=== PATIENT | female | born 1980 | race Caucasian/White ===

== ENCOUNTER 2018-05-04 09:30 | Emergency (ER) | payer OTHER ==
[2018-05-04 10:10] LABS: Bilirubin Negative (Negative); Blood, Urine Trace (Negative); Clarity Clear (Clear); Glucose, Urine (Dipstick) 500 mg/dL (Negative); Leukocyte Negative (Negative); Nitrite Negative (Negative); Protein, Urine (Dipstick) 100 mg/dL (Neg-Trace); Urobilinogen 0.2 mg/dL (0.2-1.0)
[2018-05-04 10:12] LABS: Pregnancy Test - Urine (BHCG) Negative (Negative); Pregu Control Background? CLEAR/WHITE (CLR/WHITE); Pregu Control Bar Appear? YES (CONTROL BAR)
[2018-05-04 10:21] LABS: WBC/HPF None Seen HPF (0-3)
[2018-05-04 10:22] LABS: Bacteria/HPF Rare-Few HPF (None Seen)
[2018-05-04] MEDS ORDERED: Morphine 4 MG/ML VIAL ONE (10:31)
[2018-05-04] MEDS ORDERED: Ondansetron HCl/PF 4 MG/2 ML Vial ONE (10:32)
[2018-05-04 10:36] LABS: #Basophils 0.1 thou/uL (0.0-0.2); #Eosinphils 0.1 thou/uL (0.0-0.7); #Lymphocytes 1.9 thou/uL (1.20-3.40); #Monocytes 0.6 thou/uL (0.11-0.59); #Neutrophils 3.5 thou/uL (1.40-6.50); %Basophils 1.8 % (0.0-1.0); %Eosinophils 2.1 % (0.0-10.0); %Lymphocytes 30.1 % (21.0-51.0); %Monocytes 9.1 % (0.0-10.0); %Neutrophils 56.9 % (42.0-75.0); Hemoglobin 17.7 g/dL (12.0-16.0); Mean Corpuscular HGB CONC 34.9 g/dL (32.0-36.0); Mean Corpuscular Hemoglobin 30.3 pg (27.0-31.0); Mean Corpuscular Volume 86.6 fL (78.0-98.0); Mean Platelet Volume 7.9 fL (7.4-10.4); Platelet Count 149 thou/uL (130-400); RBC Distribution Width 10.6 % (11.5-14.5); Red Blood Cell (RBC) Count 5.85 mill/uL (4.20-5.40); White Blood Cell (WBC) Count 6.2 thou/uL (4.8-10.8)
[2018-05-04 10:48] LABS: ALT (SGPT) 54 U/L (8-55); AST (SGOT) 34 U/L (5-34); Albumin 4.3 g/dL (3.5-5.0); Alkaline Phosphatase 93 U/L (40-150); Anion Gap 15 mmol/L (10-20); BUN (Urea Nitrogen) 9 mg/dL (7.0-18.7); Bilirubin, Total 0.4 mg/dL (0.2-1.2); Calc. Creatinine Clearance 0 mL/min (70-130); Calcium 9.6 mg/dL (7.8-10.44); Carbon Dioxide 21 mmol/L (22-29); Chloride 104 mmol/L (98-107); Estimated GFR-MDRD Greater than 90; Globulin 3.1 g/dL (2.4-3.5); Glucose 261 mg/dL (70-105); Lipase 30 U/L (8-78); Potassium 4.3 mmol/L (3.5-5.1); Protein, Total 7.4 g/dL (6.0-8.3); Sodium 136 mmol/L (136-145)
[2018-05-04] MEDS ORDERED: Ketorolac Tromethamine 30 MG/ML VIAL ONE (11:43)
--- NOTE | 2018-05-04 12:58 | CT ---
CT OF THE ABDOMEN AND PELVIS WITH CONTRAST: COMPARISON: None. HISTORY: Right lower quadrant abdominal pain and low back pain for 1 week. TECHNIQUE: Multiple contiguous axial images were obtained in a CT of the abdomen and pelvis with contrast. Prudence nal reformats were performed. FINDINGS: Diffuse fatty infiltration of the liver is seen. The gallbladder, kidneys, adrenal glands, spleen, a nd pancreas are unremarkable. No free air, free fluid, or stranding changes are seen in the abdomen or pelvis. The reproductive organs are unremarkable. The large and small bowel are unremarkable. The appendix is normal. There is a small amount of stool throughout the colon. No abdominal or pelvic lymphadenopathy are seen. Mild degenerative changes are seen in the spine. T he visualized inferior thorax and abdominal wall soft tissues are unremarkable. IMPRESSION: 1. No evidence of acute intraabdominal/pelvic abnormality. 2. Fatty liver. POS: [facility]
[2018-05-04] MEDS ORDERED: HYDROcodone/Acetaminophen 5/325 mg Tablet ONE (13:23)
--- NOTE | 2018-05-04 14:24 | ULT ---
PELVIC ULTRASOUND: COMPARISON: CT abdomen/pelvis 05/04/18. HISTORY: The patient has right lower quadrant abdominal pain and low back pain. The patient had her left ovar y removed 20 years ago. TECHNIQUE: Multiplanar, ibrahim scale, and color Doppler images were obtained in a transabdominal and transvaginal pelvic ultrasound. Spectral analysis of the Doppler waveform of the right ovary was performed. FINDINGS: The uterus is normal in size and appearance without focal abnormality. The endometrial stripe is nor mal in thickness measuring 8 mm. The left ovary was not visualized. No free fluid was seen in the pelvis. The right ovary is normal in size and demonstrates normal internal flow. A follicle is seen in the right ovary measuring 1.8 c m in size. IMPRESSION: No significant pelvic abnormality. POS: [facility]
[2018-05-05 22:57] LABS: Chlamydia by PCR Not Detected (NotDetected); GC by PCR Not Detected (NotDetected)
== END 2018-05-04 13:34 | disposition home or self-care (01) ==
LOC: SCSER 09:30
DX: N76.0 Acute vaginitis (principal); N94.6 Dysmenorrhea, unspecified; N94.10 Unspecified dyspareunia; E11.9 Type 2 diabetes mellitus without complications; I10 Essential (primary) hypertension; Z79.899 Other long term (current) drug therapy; Z79.84 Long term (current) use of oral hypoglycemic drugs
CPT/HCPCS: 74177; 76856; 80053; 81003; 81015; 81025; 83690; 85025; 87480; 87491; 87510; 87591; 87660; 96374; 96375; J1885; J2270; J2405

== ENCOUNTER 2018-06-30 16:30 | Inpatient (IN) | payer OTHER ==
[2018-06-30 17:29] VITALS: BMI 31.1
--- NOTE | 2018-06-30 18:08 | HP ---
HISTORY OF PRESENT ILLNESS: Ms. Samuel is a 38-year-old white female who has had previous 1 pregnanc y with 1 vaginal delivery that has been having issues with chronic pelvic pain. She also has very se harjinder dysmenorrhea that is disabling despite taking nonsteroidal medication. She states her cycles ar e not real heavy, but it has extreme pain related to them. She is desiring definitive surgical thera py for this. PAST MEDICAL HISTORY: Significant for type 2 diabetes, chronic hypertension, obesity, and some femal e hirsutism with PCOS diagnosis. She was evaluated by my colleague, Dr. Almeida for the chronic pelvic pain issues recently and a transvaginal ultrasound was performed at that time. Her uterus was normal in size, measuring 8.3 x 5 x 4.1 cm with endometrial thickness of 7.8 mm. The adnexal structures we re normal and there was no abnormal cul-de-sac fluid seen. PAST SURGICAL HISTORY: Previous left ovary removed at age of 19 for a large cyst and diagnostic lapa roscopy was performed at that time for probable endometriosis. CURRENT MEDICATIONS: Her current meds are Effexor 150 XR daily, gemfibrozil 600 mg tablet twice a da y, lisinopril 5 mg daily, metformin 750 one tablet b.i.d., trazodone 50 mg at bedtime for sleep p.r.n . along with tramadol 50 mg q.6 hours p.r.n., pelvic pain. PHYSICAL EXAMINATION: GENERAL: Height 5 feet 9 inches, 217 pounds. BMI 32. VITAL SIGNS: Blood pressure 120/90, pulse 97, respirations 18. HEENT: Within normal limits. CHEST: Clear to auscultation. HEART: Regular rate and rhythm. S1, S2 heart sounds, no murmurs, rubs or gallops. ABDOMEN: Soft, nontender, no guarding or masses palpated. PELVIC: Vulva and vagina had no lesions. Cervix had no lesions. Recent Pap smear and HPV were nega tive, along with negative chlamydia and gonorrhea cultures. There was no excessive cystocele, rectoc katia seen. Uterus with some mild tenderness to palpation. Adnexa were no masses, but mildly tender. ASSESSMENT: A 38-year-old white female, G1, P1, with chronic pelvic pain. Possible etiologies endom etriosis versus chronic PID, history of previous left salpingo-oophorectomy, also known type 2 diabet ic with most likely polycystic ovary syndrome symptoms. PLAN: Proceed with robotic TLH with removal of the right ovary and tube. Risks and benefits of proc edure discussed in detail and set for surgery 07/08/2018.
[2018-07-08] MEDS ORDERED: Bupivacaine HCl 0.5%/Epinephrine 1:200,000/PF 30 ml Vial ONE (08:52)
[2018-07-08] MEDS ORDERED: CEFAZOLIN 2 GM/50 ML BAG ONE (09:04)
[2018-07-08] MEDS ORDERED: Famotidine/PF 20 mg/2ml Vial ONE (09:04)
[2018-07-08] MEDS ORDERED: CeleCOXIB 100 MG CAP ONE (09:04)
[2018-07-08] MEDS ORDERED: Midazolam HCl 2 mg/2 ml Vial ONE (13:42)
[2018-07-08] MEDS ORDERED: Fentanyl 100 MCG/2 ML VIAL ONE ×2 (13:51→16:10)
[2018-07-08] MEDS ORDERED: hydrALAZINE 20 MG/ML VIAL ONE (14:44)
[2018-07-08] MEDS ORDERED: traZODone HCl 50 MG TAB PO PRN (15:51)
[2018-07-08] MEDS ORDERED: Promethazine HCl 25 MG/ML VIAL ONE (16:10)
[2018-07-08] MEDS ORDERED: Ondansetron PF 4 MG/2 ML Vial ONE (16:48)
[2018-07-08] MEDS ORDERED: Labetalol HCl 100 MG/20 ML VIAL ONE (16:48)
[2018-07-08] MEDS ORDERED: Glycopyrrolate 0.2 MG/ML 5 ML SYRINGE ONE (16:48)
[2018-07-08] MEDS ORDERED: Lidocaine 1% PF 5 ML VIAL ONE (16:48)
[2018-07-08] MEDS ORDERED: Metoclopramide HCl 10 MG/2 ML VIAL ONE (16:48)
[2018-07-08] MEDS ORDERED: PROPOFOL 200 MG/20 ML VIAL ONE (16:48)
[2018-07-08] MEDS ORDERED: Ketorolac Tromethamine 30 MG/ML VIAL ONE (17:15)
[2018-07-08] MEDS ORDERED: Morphine 4 MG/ML VIAL ONE (17:35)
[2018-07-08] MEDS ORDERED: Promethazine HCl 25 MG/ML VIAL IM PRN (18:20)
[2018-07-08] MEDS ORDERED: diphenhydrAMINE 25 MG CAP PO PRN (18:20)
[2018-07-08] MEDS ORDERED: Estradiol 0.05mg/24 Hour Patch (Weekly) TD SCH (18:20)
[2018-07-08] MEDS ORDERED: traMADol HCl 50 MG TAB PO PRN (18:20)
[2018-07-08] MEDS ORDERED: Ondansetron PF 4 MG/2 ML Vial IVP PRN (18:20)
[2018-07-08] MEDS ORDERED: Bisacodyl 10 MG SUPP PR PRN (18:20)
[2018-07-08] MEDS ORDERED: Morphine 10 MG/ML VIAL SLOW IVP PRN (18:20)
[2018-07-08] MEDS ORDERED: Zolpidem Tartrate 5 MG TAB PO PRN (18:20)
[2018-07-08] MEDS ORDERED: Simethicone Chewable 80 MG TAB PO PRN (18:20)
[2018-07-08] MEDS ORDERED: Loratadine 10 MG TAB PO SCH (21:00)
[2018-07-08] MEDS: metFORMIN 850 MG TAB PO SCH (21:46)
[2018-07-08] MEDS: Lactated Ringer's 1,000 ML IV SCH (21:46)
[2018-07-08] MEDS: Gemfibrozil 600 MG TAB PO SCH (21:46)
[2018-07-08] MEDS: traMADol HCl 50 MG TAB PO PRN (21:47)
[2018-07-08] MEDS: Ketorolac Tromethamine 30 MG/ML VIAL IVP SCH (23:47)
[2018-07-09] MEDS: Lactated Ringer's 1,000 ML IV SCH ×2 (02:51→11:20)
[2018-07-09] MEDS: Ketorolac Tromethamine 30 MG/ML VIAL IVP SCH ×2 (06:10→11:27)
[2018-07-09 06:48] LABS: Hemoglobin 16.5 g/dL (12.0-16.0); Mean Corpuscular HGB CONC 34.8 g/dL (32.0-36.0); Mean Corpuscular Hemoglobin 31.2 pg (27.0-31.0); Mean Corpuscular Volume 89.5 fL (78.0-98.0); Mean Platelet Volume 7.3 fL (7.4-10.4); Platelet Count 181 thou/uL (130-400); Red Blood Cell (RBC) Count 5.29 mill/uL (4.20-5.40); White Blood Cell (WBC) Count 10.6 thou/uL (4.8-10.8)
[2018-07-09] MEDS: traMADol HCl 50 MG TAB PO PRN ×2 (07:40→12:54)
[2018-07-09] MEDS ORDERED: Lisinopril 5 MG TAB PO SCH (09:00)
[2018-07-09] MEDS ORDERED: Venlafaxine HCl XR 150 MG CAP PO SCH (09:00)
[2018-07-09] MEDS: metFORMIN 850 MG TAB PO SCH (09:00)
[2018-07-09] MEDS: Gemfibrozil 600 MG TAB PO SCH (09:00)
[2018-07-09 12:01] VITALS: BP 137/90; TEMP 98.7
--- NOTE | 2018-07-10 06:05 | DIS ---
DATE OF ADMISSION: 07/08/2018 DATE OF DISCHARGE: 07/09/2018 DIAGNOSES: 1. Severe dysmenorrhea, chronic pelvic pain; unresponsive to medical management. 2. Right ovarian cyst. PROCEDURES PERFORMED: Robotic total laparoscopic hysterectomy and right salpingo-oophorectomy. COMORBID DIAGNOSES: 1. Adult-onset diabetes. 2. Polycystic ovary syndrome. SUMMARY OF HOSPITAL COURSE: Ms. Samuel is a 38-year-old white female, G1, P1, who had severe dysmenorrhea that was disabling despite nonsteroidal therapy and also persistent right lower quadrant pain. 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 She desired definitive surgical therapy, underwent uncomplicated robotic total laparoscopic hysterectomy and right salpingo-oophorectomy. The patient previously had a surgical LSO in the past. Postoperatively, the patient has done well. Vital signs remained stable and hematocrit 47% on postoperative day #1. Glycemic control was adequate on Glucophage with readings from 124 to 184. She was ambulating and tolerating diet and voiding on postoperative day #1. Pain control was adequate with tramadol and Motrin. She will be discharged home with tramadol 50 mg q.6 hours p.r.n. pain, [id number] ibuprofen as directed and will be initiated on estradiol 2 mg tablet 1 p.o. daily for hormone replacement therapy to start postoperative day 7. Job ID: [id number]
--- NOTE | 2018-07-10 12:05 | OP ---
DATE OF PROCEDURE: 07/08/2018 PREOPERATIVE DIAGNOSES: 1. A 38-year-old white female, 1, para 1, with chronic pelvic pain. 2. Uterine leiomyoma, severe dysmenorrhea. 3. Prior removal of her left tube and ovary for large cyst and possible endometriosis. POSTOPERATIVE DIAGNOSES: 1. A 38-year-old white female, 1, para 1, with chronic pelvic pain. 2. Uterine leiomyoma, severe dysmenorrhea. 3. Prior removal of her left tube and ovary for large cyst and possible endometriosis. 4. Right adnexal cyst of the ovary noted. PROCEDURES PERFORMED: 1. Robotic total laparoscopic hysterectomy, RSO. 2. Lysis of adhesions. ANESTHESIA: General endotracheal. ESTIMATED BLOOD LOSS: 50 mL. COMPLICATIONS: None. COUNTS: Correct x2. ANTIBIOTICS: 2 g Ancef in the ERAS protocol. FINDINGS: 1. Uterus, mildly enlarged leiomyoma noted. 2. Right ovary with 3 cm cyst and some adhesions. 3. Tubular adhesions, status post lysis of adhesions, otherwise no significant pelvic adhesions or abdominal adhesions noted. 4. Clear urine present in Moyer catheter postprocedure and bladder was watertight to distention of 300 mL intraoperatively. Bilateral ureteral peristalsis was visualized postprocedure. DISPOSITION: Recovery room, stable. DESCRIPTION OF PROCEDURE: The patient previously received informed consent in regard to surgery. Taken back to the operating room, where she received general endotracheal anesthetic agent without complications. Placed in a dorsal lithotomy position with the use of Darwin stirrups, and prepped and draped in the usual sterile fashion. A standard speculum was placed in the vagina. Anterior lip of the cervix was grasped with single-tooth tenaculum. Uterus sounded to 9 cm and size 8 cm YOLANDA uterine manipulator with 3.5 cm cervical cup was placed. Tenaculum and speculum were removed. The patient was then positioned for the abdominal portion of the procedure. Perspective trocar sites were infiltrated with 0.5% Marcaine with epinephrine. A 12 mm supraumbilical incision was made. A Veress needle was entered into the peritoneal cavity. The patient pressure was noted to be less than 5 mm. Abdomen was then distended to the patient's pressure of 15, approximately 4.5 L of carbon dioxide gas. The robotic laparoscope was introduced. Trocar sleeve proper entry was confirmed. Additional bilateral lower quadrant 8 mm trocars were placed under laparoscopic guidance through the right upper quadrant 11 mm port. The patient was placed in Trendelenburg position and robot was docked. I then proceeded to carry out the surgery from the operative console while my assistants remained at the bedside. The uterus was elevated. The previously mentioned findings were noted. The right IP ligament was identified. It was isolated to pelvic sidewall. Bipolar fenestrated cautery was utilized to coagulate the right IP ligament, hugging close to the ovary and transecting this with monopolar scissors. Serial coagulation and transection of broad ligament to the right round ligament, which was transected and the anterior leaf of the broad ligament was then entered. The vesicouterine peritoneum was then developed in a layering technique, where the bladder was take taken down atraumatically and right uterine vessels were skeletonized. This was then repeated on the patient's left side. The previous LSO was noted. The broad ligament remained on the left side was coagulated, hugging close to uterine specimen, transected and then the left round ligament was reached. It was coagulated and transected. The anterior leaf of the broad ligament was again entered and the vesicouterine peritoneum was again taken down in layering technique dropping the bladder atraumatically past the cervicovaginal angle. The left uterine vessels again were skeletonized and coagulated in the internal cervical os region. Once we felt the bladder had been taken down safely past the cervicovaginal angle intermittently, the bladder was distended to confirm its position and that it not had any mucosal injury. The anterior colpotomy was then made over the cleaned off cervical area starting at the 12 to 3 and 12 to 9 o'clock position. The uterine vessels were then coagulated in this area with bipolar fenestrated cautery. The posterior colpotomy was then completed from 6 to 3 and 6 to 9 o'clock. The specimen was then delivered in the vaginal vault along with the right adnexal structures. A Vasile needle mechanic driver was then switched out for the monopolar scissors. The vaginal cuff was coagulated with bipolar fenestrated cautery. Stratafix suture was brought into the field by my greenhouse assistant. The vaginal cuff was closed in full-thickness closure starting from the right angle to the left angle, and back towards the right angle. Hemostasis along the cuff line was confirmed. Hemostasis on the pedicle sites of each pelvic sidewall was confirmed. Pelvis again was irrigated and suctioned. Hemostasis confirmed. Bilateral ureteral peristalsis was visualized. Moyer catheter was draining clear urine. The surgery was completed. The robot was undocked. The excess carbon dioxide gas was released from abdomen. Trocar sleeves were removed. A deep stitch of 0 Vicryl suture in the fascia of the supraumbilical site was closed in a [id number] stitch fashion. The remainder of the trocar sites were closed with 4-0 Monocryl and Dermabond. The vaginal cuff was inspected and hemostasis with sponge stick was confirmed. The patient was awakened and transferred to recovery room in stable condition. Job ID: [id number]
[2018-07-14] MEDS ORDERED: Ibuprofen 800 MG TAB PO SCH (09:00)
== END 2018-07-09 13:16 | disposition home or self-care (01) | DRG 743 ==
LOC: SURG A 07-08 07:58 → 3SE 07-08 18:20
PROVIDERS: ADMIT Obstetrics & Gynecology; ATTEND Obstetrics & Gynecology
PROC: 0UT98ZZ Resection of Uterus, Via Natural or Artificial Opening Endoscopic (ICD-10-PCS; principal; 2018-07-08)
DX: N83.201 Unspecified ovarian cyst, right side (principal); N92.6 Irregular menstruation, unspecified; R10.2 Pelvic and perineal pain
CPT/HCPCS: 36415; 36416; 85027; 88307; J0131; J0360; J0670; J1885; J2001; J2250; J2270; J2405; J2550; J2704; J2765; J3010; S0028

== ENCOUNTER 2018-06-30 16:46 | Outpatient (CLI) | payer OTHER ==
[2018-06-30 18:06] LABS: Hemoglobin 16.8 g/dL (12.0-16.0); Mean Corpuscular HGB CONC 34.6 g/dL (32.0-36.0); Mean Corpuscular Hemoglobin 30.5 pg (27.0-31.0); Mean Platelet Volume 7.6 fL (7.4-10.4); Platelet Count 199 thou/uL (130-400); RBC Distribution Width 11.8 % (11.5-14.5); Red Blood Cell (RBC) Count 5.51 mill/uL (4.20-5.40); White Blood Cell (WBC) Count 9.2 thou/uL (4.8-10.8)
[2018-06-30 18:24] LABS: Anion Gap 13 mmol/L (10-20); BUN (Urea Nitrogen) 9 mg/dL (7.0-18.7); Calc. Creatinine Clearance 0 mL/min (70-130); Calcium 9.8 mg/dL (7.8-10.44); Carbon Dioxide 23 mmol/L (22-29); Chloride 104 mmol/L (98-107); Estimated GFR-MDRD Greater than 90; Glucose 120 mg/dL (70-105); Potassium 3.7 mmol/L (3.5-5.1); Sodium 136 mmol/L (136-145)
== END 2018-06-30 16:47 | disposition home or self-care (01) ==
LOC: LABBT 16:46
PROVIDERS: ATTEND Obstetrics & Gynecology
DX: Z01.812 Encounter for preprocedural laboratory examination (principal); N92.6 Irregular menstruation, unspecified; R10.2 Pelvic and perineal pain
CPT/HCPCS: 80048; 85027

== ENCOUNTER 2018-07-02 15:17 | Outpatient (CLI) | payer OTHER | END 2018-07-02 15:18 | disposition home or self-care (01) | LOC: LABBT 15:17 | PROVIDERS: ATTEND Obstetrics & Gynecology | DX: Z01.812 Encounter for preprocedural laboratory examination (principal); N92.6 Irregular menstruation, unspecified; R10.2 Pelvic and perineal pain; G89.29 Other chronic pain | CPT/HCPCS: 86850; 86900; 86901 ==

== ENCOUNTER 2018-07-04 09:52 | Emergency (ER) | payer OTHER ==
[2018-07-04 10:11] LABS: Bilirubin Small (Negative); Blood, Urine Negative (Negative); Clarity Slightly Cloudy (Clear); Glucose, Urine (Dipstick) 100 mg/dL (Negative); Leukocyte Negative (Negative); Nitrite Negative (Negative); Protein, Urine (Dipstick) > or equal to 300 mg/dL (Neg-Trace)
[2018-07-04 10:12] LABS: Pregnancy Test - Urine (BHCG) Negative (Negative); Pregu Control Bar Appear? YES (CONTROL BAR); Specific Gravity 1.028 (1.002-1.036); Specific Gravity, Urine 1.028 (1.002-1.036)
[2018-07-04 10:13] LABS: Pregu Control Background? CLEAR/WHITE (CLR/WHITE)
[2018-07-04 10:14] LABS: Bacteria/HPF 1+ HPF (None Seen); RBC/HPF 0-3 HPF (0-3); WBC/HPF 0-3 HPF (0-3)
[2018-07-04] MEDS ORDERED: Ketorolac Tromethamine 30 MG/ML VIAL ONE (10:25)
[2018-07-04] MEDS ORDERED: Morphine 4 MG/ML VIAL ONE (10:25)
[2018-07-04 10:32] LABS: #Basophils 0.1 thou/uL (0.0-0.2); #Eosinphils 0.1 thou/uL (0.0-0.7); #Lymphocytes 2.2 thou/uL (1.20-3.40); #Monocytes 0.6 thou/uL (0.11-0.59); #Neutrophils 3.2 thou/uL (1.40-6.50); %Basophils 1.7 % (0.0-1.0); %Eosinophils 1.8 % (0.0-10.0); %Monocytes 8.9 % (0.0-10.0); %Neutrophils 51.7 % (42.0-75.0); Hemoglobin 16.8 g/dL (12.0-16.0); Mean Corpuscular HGB CONC 34.3 g/dL (32.0-36.0); Mean Corpuscular Hemoglobin 28.9 pg (27.0-31.0); Mean Corpuscular Volume 84.2 fL (78.0-98.0); Mean Platelet Volume 8.2 fL (7.4-10.4); Platelet Count 159 thou/uL (130-400); Red Blood Cell (RBC) Count 5.83 mill/uL (4.20-5.40); White Blood Cell (WBC) Count 6.2 thou/uL (4.8-10.8)
[2018-07-04 10:46] LABS: Anion Gap 14 mmol/L (10-20); BUN (Urea Nitrogen) 10 mg/dL (7.0-18.7); Calc. Creatinine Clearance 0 mL/min (70-130); Calcium 9.4 mg/dL (7.8-10.44); Carbon Dioxide 21 mmol/L (22-29); Chloride 105 mmol/L (98-107); Estimated GFR-MDRD Greater than 90; Glucose 181 mg/dL (70-105); Potassium 3.9 mmol/L (3.5-5.1); Sodium 136 mmol/L (136-145)
[2018-07-04] MEDS ORDERED: diphenhydrAMINE 50 MG/ML VIAL ONE (10:53)
--- NOTE | 2018-07-04 13:39 | ULT ---
TRANSABDOMINAL AND TRANSVAGINAL PELVIC UTLRASOUND: INDICATION: History of pelvic pain and left oophorectomy. COMPARISON: Prior exam dated 05/04/2018. TECHNIQUE: Bradley scale, color Doppler, and spectral Doppler images were obtained of the pelvis via transabdominal and transvaginal approach. FINDINGS: The left ovary is surgically absent. The right ovary measured 5.0 x 4.5 x 4.3 cm. There is normal f low to the right ovary. There is a 3.5 cm cyst within the right ovary. No free fluid is evident. The uterus measures 8.3 x 5.5 x 4.3 cm. The endometrial stripe measures 7 mm. IMPRESSION: 1. Simple follicular cyst within the right ovary measuring up to 3.5 cm. A followup ultrasound in 6 -8 weeks may be helpful to document resolution. 2. Left oophorectomy. POS: [facility]
[2018-07-06 23:50] LABS: Chlamydia by PCR Not Detected (NotDetected); GC by PCR Not Detected (NotDetected)
== END 2018-07-04 11:56 | disposition home or self-care (01) ==
LOC: SCSER 09:52
DX: N83.01 Follicular cyst of right ovary (principal); I10 Essential (primary) hypertension; E11.9 Type 2 diabetes mellitus without complications; Z79.899 Other long term (current) drug therapy; Z79.84 Long term (current) use of oral hypoglycemic drugs
CPT/HCPCS: 76856; 80048; 81003; 81015; 81025; 85025; 87480; 87491; 87510; 87591; 87660; 96374; 96375; J1200; J1885; J2270